=== PATIENT | female | born 1985 | race African-American/Black ===

== ENCOUNTER 2023-08-06 14:17 | Emergency (ER) | payer MEDICAID ==
[~2023-08-06] VITALS: Ht 157.5 cm; Wt 68.2 kg
[2023-08-06 14:25] VITALS: TEMP 98.4
[2023-08-06] MEDS ORDERED: DIPH50CA37 PO (15:12)
[2023-08-06] MEDS ORDERED: LORA10TA7 PO (15:12)
[2023-08-06] MEDS: MethylPREDNISolone SOD SUCC 125 MG/2 ML VIAL IM ONE (15:15)
[2023-08-06 15:17] VITALS: BP 121/70; PULSE 74; RESP 16
== END 2023-08-06 15:29 | disposition home or self-care (01) ==
LOC: EMS 14:18
DX: L50.9 Urticaria, unspecified (principal); F41.9 Anxiety disorder, unspecified; F32.A Depression, unspecified; Z98.890 Other specified postprocedural states
CPT/HCPCS: 99283; 96372; J2919